=== PATIENT | female | born 1985 | race Two or more races ===

== ENCOUNTER 2020-07-06 08:34 | Inpatient (IN) ==
[2020-07-06] MEDS ORDERED: CITRIC ACID/SODIUM CITRATE 30 ML UDCUP PO ONE (11:19)
[2020-07-06] MEDS ORDERED: FAMOTIDINE 20 MG/2 ML VIAL IV ONE (11:19)
[2020-07-06] MEDS ORDERED: ceFAZolin 2,000 MG in PREMIX 1 EACH IV ONE (11:19)
[2020-07-06] MEDS ORDERED: OXYTOCIN/LR 20 UNIT/1,000 ML BAG IV ONE ×2 (11:30→12:59)
[2020-07-06] MEDS ORDERED: TRANEXAMIC ACID 1,000 MG/10 ML VIAL ONE (11:30)
[2020-07-06] MEDS ORDERED: LACTATED RINGERS 1,000 ML IV SCH (11:30)
[2020-07-06] MEDS ORDERED: miSOPROStoL 200 MCG TABLET ONE (11:30)
[2020-07-06] MEDS ORDERED: CARBOPROST TROMETHAMINE 250 MCG/ML AMP IM ONE (11:31)
[2020-07-06] MEDS ORDERED: METHYLERGONOVINE 0.2 MG/1 ML AMP ONE (11:31)
[2020-07-06 11:43] LABS: Basophils % 0.2 % (0.0-0.8); Eosinophils % 0.4 % (0.00-10.9); Hematocrit 36.1 VOL% (35.7-47.0); Immature Granulocytes % 0.8 %; Immature Granulocytes Absolute 0.07 #; Lymphocytes # 1.7 10*3/uL (1.4-4.0); Lymphocytes % 18.6 % (21.3-54.2); Mean Corpuscular HGB Conc 33.2 GM/DL (32-36); Mean Corpuscular Volume 94.3 FL (87-102); Mean Platelet Volume 12.4 FL (9.6-12.0); Monocytes % 6.8 % (1.7-12.7); Neutrophils % 73.2 % (38.7-73.9); Platelet Count 108 T/CUMM (130-400); Red Blood Count 3.83 MC/CUMM (3.8-5.5); Red Cell Distribution Width 14.2 % (9.3-17.3); White Blood Count 9.1 T/CUMM (4-12)
[2020-07-06 12:13] LABS: Albumin 2.9 G/DL (3.4-5.0); Bilirubin,Total 0.4 MG/DL (0.2-1.0); Calcium 8.9 MG/DL (8.5-10.1); Osmolality,Calculated 271.7 MOS/KG (273-304); Total Protein 6.9 G/DL (6.4-8.3)
[2020-07-06 12:27] LABS: Apearance,Urine CLEAR (Clear); Bacteria,Urine Occasional /HPF (Few); Bilirubin,Urine Negative (Negative); Blood, Urine Negative (Negative); Glucose,Urine (UA) Negative (Negative); Ketones,Urine 20 mg/dL (Negative); Mucus,Urine Occasional /LPF (Occasional); Nitrite,Urine Negative (Negative); Protein,Urine Negative; Squamous Epithelial Cell,Urine Occasional /HPF (0-10); Urine Color Yellow (Yellow); Urine Specific Gravity 1.015 (1.001-1.035); Urine Urobilinogen < 2.0 EU/DL (0.2-1.0)
[2020-07-06 12:44] LABS: Cord Venous Blood HCO3 22.1 MMOL/L; Cord Venous Blood PO2 33.2
[2020-07-06] MEDS ORDERED: HYDROCORTISONE 2.5% RECTAL CREAM 30 GM TUBE TOP PRN (12:59)
[2020-07-06] MEDS ORDERED: WITCH HAZEL PADS 100/JAR TOP PRN (12:59)
[2020-07-06] MEDS ORDERED: BENZOCAINE 20%/MENTHOL 0.5% SPRAY 56 GM CAN TOP PRN (12:59)
[2020-07-06] MEDS ORDERED: LANOLIN 50% CREAM 0.3 OZ TUBE TOP PRN (12:59)
[2020-07-06] MEDS ORDERED: ONDANSETRON 4 MG/2 ML VIAL IV PRN (12:59)
[2020-07-06] MEDS ORDERED: IBUPROFEN 800 MG TABLET PO PRN (12:59)
[2020-07-06] MEDS ORDERED: RHO(D) IMMUNE GLOBULIN 300 MCG SYRINGE IM ONE (12:59)
[2020-07-06] MEDS ORDERED: BISACODYL 10 MG SUPP RECTAL PRN (12:59)
[2020-07-06] MEDS ORDERED: DIPH/TET/ACEL PERT BOOSTER VACCINE 0.5 ML VIAL IM ONE (12:59)
[2020-07-06] MEDS ORDERED: MEASLES/MUMPS/RUBELLA VACCINE 0.5 ML VIAL SUBCUT ONE (12:59)
[2020-07-06] MEDS ORDERED: ACETAMINOPHEN 325 MG TABLET PO PRN (12:59)
[2020-07-06] MEDS ORDERED: MORPHINE 10 MG/10 ML VIAL ONE (13:31)
[2020-07-06] MEDS ORDERED: BUPIVACAINE SPINAL 0.75% 2 ML AMP SPINAL ONE (13:31)
[2020-07-06] MEDS ORDERED: LIDOCAINE 1% 5 ML VIAL ONE (13:31)
[2020-07-06] MEDS ORDERED: MIDAZOLAM 2 MG/2 ML VIAL ONE (13:32)
[2020-07-06] MEDS ORDERED: BUPIVACAINE MPF 0.25% 30 ML VIAL ONE (13:32)
[2020-07-06] MEDS ORDERED: DEXAMETHASONE 4 MG/1 ML VIAL ONE (13:32)
[2020-07-06] MEDS ORDERED: PHENYLEPHRINE 1 MG/10 ML SYRINGE IV ONE (13:32)
[2020-07-06] MEDS ORDERED: KETAMINE 500 MG/10 ML VIAL ONE (13:32)
[2020-07-06] MEDS ORDERED: LACTATED RINGERS 1,000 ML IV ONE (13:32)
[2020-07-06] MEDS ORDERED: ONDANSETRON 4 MG/2 ML VIAL ONE (13:32)
[2020-07-06] MEDS: KETOROLAC 30 MG/1 ML VIAL IV PRN (16:12)
[2020-07-06] MEDS: oxyCODONE/ACETAMINOPHEN 5-325 MG TABLET PO PRN (19:20)
[2020-07-06] MEDS ORDERED: ceFAZolin 1,000 MG in SYRINGE 1 EACH IV SCH (21:00)
[2020-07-06] MEDS: ceFAZolin 1,000 MG in SYRINGE 1 EACH IV SCH (21:05)
[2020-07-06] MEDS: DOCUSATE SODIUM 100 MG CAPSULE PO SCH (21:08)
[2020-07-07] MEDS: ceFAZolin 1,000 MG in SYRINGE 1 EACH IV SCH (04:32)
[2020-07-07] MEDS: KETOROLAC 30 MG/1 ML VIAL IV PRN ×2 (04:42→10:17)
[2020-07-07 05:22] LABS: Basophils % 0.1 % (0.0-0.8); Eosinophils % 0.1 % (0.00-10.9); Hematocrit 26.2 VOL% (35.7-47.0); Immature Granulocytes % 0.6 %; Immature Granulocytes Absolute 0.08 #; Lymphocytes # 1.7 10*3/uL (1.4-4.0); Lymphocytes % 13.4 % (21.3-54.2); Mean Corpuscular Volume 93.6 FL (87-102); Mean Platelet Volume 12.1 FL (9.6-12.0); Neutrophils % 78.8 % (38.7-73.9); Platelet Count 100 T/CUMM (130-400); Red Cell Distribution Width 13.8 % (9.3-17.3)
[2020-07-07 05:28] LABS: Hemoglobin 8.9 GM/DL (12.0-16.0)
[2020-07-07 05:29] LABS: White Blood Count 12.6 T/CUMM (4-12)
[2020-07-07 05:43] LABS: Microcytosis 1+
[2020-07-07 05:44] LABS: Platelet Estimate Decreased
[2020-07-07] MEDS: DOCUSATE SODIUM 100 MG CAPSULE PO SCH ×2 (08:46→21:39)
[2020-07-07] MEDS: FERROUS SULFATE 325 MG TABLET PO SCH ×2 (08:46→21:39)
[2020-07-07] MEDS: MAGNESIUM HYDROXIDE SUSP 30 ML UDCUP PO PRN (10:53)
[2020-07-07] MEDS: oxyCODONE/ACETAMINOPHEN 5-325 MG TABLET PO PRN (14:20)
[2020-07-08] MEDS: MAGNESIUM HYDROXIDE SUSP 30 ML UDCUP PO PRN (00:15)
[2020-07-08] MEDS: oxyCODONE/ACETAMINOPHEN 5-325 MG TABLET PO PRN ×2 (04:21→07:39)
[2020-07-08 04:29] VITALS: BP 108/68
[2020-07-08] MEDS: FERROUS SULFATE 325 MG TABLET PO SCH (07:39)
[2020-07-08] MEDS: DOCUSATE SODIUM 100 MG CAPSULE PO SCH (07:39)
== END 2020-07-08 12:50 | disposition home or self-care (01) | DRG 540 ==
LOC: N.LDOUT 08:34 → N.LD 08:39 → N.OB 15:42
PROVIDERS: ADMIT Specialist; ATTEND Specialist
PROC: LDCSECT (ICD-10-PCS; 2020-07-06 12:00)